=== PATIENT | male | born 1975 | race Caucasian/White ===

== ENCOUNTER 2018-11-25 09:32 | Emergency (ER) | payer OTHER ==
[~2018-11-25] VITALS: Ht 165.1 cm; Wt 54.4 kg
[~2018-11-25 09:32] MED LIST: AMIT25 PO; AMIT50 PO; AMIT75; AMIT75 PO; Amitriptyline H50 MG PO; Amitriptyline100 MG PO; HYDACE5 PO; Inderal 20 mg T20 MG PO
[2018-11-25] MEDS ORDERED: Amitriptyline H25 MG PO (10:01)
== END 2018-11-25 10:09 | disposition home or self-care (01) ==
LOC: ER 09:32
DX: Z76.0 Encounter for issue of repeat prescription (principal); F41.9 Anxiety disorder, unspecified; Z79.899 Other long term (current) drug therapy; F32.9 Major depressive disorder, single episode, unspecified; F17.200 Nicotine dependence, unspecified, uncomplicated
CPT/HCPCS: 99281